=== PATIENT | male | born 1940 | race Caucasian/White ===

== ENCOUNTER 2018-11-23 10:02 | Inpatient (IN) | payer OTHER ==
[~2018-11-23] VITALS: Ht 182.9 cm; Wt 79.6 kg
--- NOTE | ~2018-11-23 | CRIT ---
[facility] [address] [place] [address] CRITICAL CARE NOTE Name: VLAD VASQUEZ Room #: 209-P [facility] IN M.R.#: [id number] Admission: 11/23/18 ������������������ Attend Phys: Kevin Fonseca Discharge: 11/24/18 ������������������ Date of : 44 Report #: [id number] THIS REPORT FOR: //name// CC: PABLO physician/PCP Kevin Fonseca DATE OF SERVICE: 11/23/2018 INDICATION FOR CONSULTATION: STEMI alert. HISTORY OF PRESENT ILLNESS: This is a very pleasant 78-year-old gentleman who has not sought medical attention majority of his life, was brought to the Emergency Room via ambulance for shortness of breath. The patient states he has been short of breath for several days, but on the day he was brought in, it became so prominent that he was unable to stay home. He states currently that he is not having any shortness of breath. He has no orthopnea or PND prior to this. He denies any palpitations, has not had any syncope or near syncope. He states he has not fallen any. No fever, chills, night sweats have been described previously. He is a former alcoholic, having stopped alcohol approximately 10 months ago. He has been having anorexia and weakness for some time and problems with his bowels intermittently. He subsequently is admitted for further assessment and evaluation. ELECTROCARDIOGRAM: Sinus tachycardia with PACs, left axis deviation with left anterior fascicular block. There is voltage criteria for LVH with repolarization abnormalities. ALLERGIES: PENICILLIN. PAST MEDICAL HISTORY: 1. Tobacco dependence. 2. Former alcohol dependence. RADIOLOGIC: Chest x-ray shows no acute processes. SOCIAL HISTORY: The patient lives alone. Quit smoking greater than one year ago, is no longer alcohol consumer. Lives at home. FAMILY HISTORY: Significant for different cancers including melanoma and leukemia. REVIEW OF SYSTEMS: Except for symptoms previously mentioned and those commensurate with comorbid state, the 10-point review of system is negative. HOME MEDICATIONS have been ifje-jjv-sacquka omeprazole and aspirin. [address] [address] CRITICAL CARE NOTE Name: VLAD VASQUEZ Room #: 209-P [facility] IN M.R.#: [id number] Admission: 11/23/18 ������������������ Attend Phys: Kevin Fonseca Discharge: 11/24/18 ������������������ Date of : 44 Report #: [id number] PHYSICAL EXAMINATION: GENERAL: Well-developed, well-nourished male, resting comfortably, in no acute distress. HEENT: Normocephalic, atraumatic. Pupils are equal, round, reactive to light and accommodation. Extraocular muscles are intact. Sclerae and conjunctivae are anicteric. NECK: JVD is normal. Carotid upstrokes are bilaterally symmetrical. No bruits are heard. No thyromegaly. No lymphadenopathy. LUNGS: Decreased tidal volume. No wheezes, rhonchi or crackles. CARDIAC: Demonstrates irregular rhythm, controlled rate. PMI is laterally displaced mildly and there is a grade 2/6 systolic murmur from the base to the apex of the axilla and in the aortic region. ABDOMEN: Palpable liver or sub-right costal margin firmness. No bruits noted. EXTREMITIES: Without cyanosis, clubbing or edema. Distal pulses are intact. DTR symmetrical. NEUROLOGIC: Cranial nerves 2-12 are grossly normal and symmetrical. PSYCHIATRIC: Alert, oriented with normal affect. SKIN: Warm and dry. LABORATORY DATA: Noted and reviewed in the chart. IMPRESSION AND PLAN: 1. Shortness of breath by history, currently fairly stable on oxygen. In view of this, would evaluate more fully pulmonary causes of this since he is a longtime smoker. 2. Sinus tachycardia secondary to above. We will evaluate and monitor closely. 3. Generalized weakness, multiple reasons for this including anorexia, etc., that is the davila thing that must be evaluated more fully to see why he is like this. 4. Abdominal pain as per primary care. ��������������������������������������������� ���������������������������������������� By: ��������������������������������������������� [id number] Jason Vivar MD /nt
[2018-11-23 10:05] VITALS: BP 151/78
[2018-11-23] MEDS ORDERED: OMEPRAZOLE10 MG PO (10:13)
[2018-11-23] MEDS ORDERED: ASPIR 8181 MG PO (10:13)
[2018-11-23 10:37] LABS: HEMATOCRIT 28.6 % (42.0-52.0); HEMOGLOBIN 9.4 gm/dL (14.0-18.0); MCH 30.3 pg (26.0-34.0); MCHC 32.9 g/dL (28.0-37.0); MCV 91.8 fL (80.0-100.0); PLATELET COUNT 243 thou/uL (150-400); RBC 3.12 mil/uL (4.50-6.00); RDW 22.5 % (10.5-14.5); WBC 9.5 thou/uL (4.0-11.0)
[2018-11-23 10:45] LABS: ANION GAP 10 mmol/L (7-16); BUN 21 mg/dL (7-18); CALCIUM 8.9 mg/dL (8.5-10.1); CHLORIDE 102 mmol/L (98-107); CO2 23 mmol/L (21-32); CREATININE 1.1 mg/dL (0.7-1.3); GLUCOSE 100 mg/dL (74-106); POTASSIUM 3.9 mmol/L (3.5-5.1); SODIUM 135 mmol/L (136-145)
[2018-11-23 10:50] LABS: APTT 38.3 Seconds (24.5-32.8); INR 1.2; PROTIME 12.3 Seconds (9.3-11.4)
[2018-11-23 10:56] LABS: ALBUMIN 1.9 g/dL (3.4-5.0); LIPASE 72 U/L (73-393); SGOT 579 U/L (15-37); SGPT 85 U/L (30-65); TOTAL BILIRUBIN 1.5 mg/dL (<0.1-1.0); TOTAL PROTEIN 5.7 g/dL (6.4-8.2); TROPONIN-I <0.06 ng/mL (<0.06)
[2018-11-23 10:59] LABS: ABSOLUTE NEUTROPHILS 7.4 thou/uL (1.4-8.2)
[2018-11-23 11:00] LABS: ANISOCYTOSIS 2+; OVALOCYTES FEW
[2018-11-23 17:57] VITALS: BP 145/64
[2018-11-23 18:29] VITALS: BP 132/69
--- NOTE | 2018-11-23 19:15 | NUR ---
ARRIVED FROM THE ED ON A HOSPTIAL BED. AAOX4 REPORTS FEELING VERY TIRED. FAMILT AT BEDSIDE. OREIENTED TO ROOM AND HOW TO USE CALL LIGHT.
[2018-11-23 19:27] VITALS: BP 145/70
--- NOTE | 2018-11-24 03:44 | NUR ---
PT ARRIVED AT SHIFT CHANGE. PT A/OX4, FATIGUED, DAUGHTERS AT BEDSIDE. VITAL SIGNS STABLE, ASSESSMENT CHARTED. DAUGHTER MENTIONED THAT PT HAS NOT EATEN OR DRANK MUCH IN ABOUT 5 DAYS. DAUGHETR ALSO MENTIONED THAT PT HAS NOT VOIDED OT HAD A BM IN 5 DAY. REFUSED BLOOD SUGAR CHECK, REFUSED BLADDER SCAN. DAUGHTER STAYED AT BEDSIDE THROUGH THE NIGHT. PT RESTED WELL THROUGH THE NIGHT. NO COMPLAINTS OF PAIN. NO COMPLAINTS OF SOB, RA MAINTAINED. NO ACUTE CHANGES THROUGH THE NIGHT. PROGRESSING SLOWLY TOWARD PLAN OF CARE. WILL CONTINUE TO MONITOR.
[2018-11-24 07:15] VITALS: BP 137/65
--- NOTE | 2018-11-24 08:03 | EKG ---
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: Cathy : [phone] Requested By: Celio Richardson Order Number: [id number] MD: Samuel Baker Measurements Intervals [place] Rate: 105 P: 40 SD: 167 QRS: -64 QRSD: 117 T: 111 QT: 366 QTc: 484 Interpretive Statements Sinus tachycardia with atrial premature complexes LAD, consider 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
--- NOTE | 2018-11-24 12:10 | NUR ---
High nutrition screening risk trigger. Pt with kidney mass and metastasis. Plan is for hospice. Will defer nutrition assessment at this time. Diet as tolerated.
--- NOTE | 2018-11-24 12:17 | NUR ---
Calorie count ordered and will start 11/24 x 2 days
--- NOTE | 2018-11-24 15:14 | NUR ---
REFERRAL FAXED TO [facility]OS[facility]ICE [facility] AND THEY CAN ACCEPT PT. FAXED DC ORDERS/SUMMARY TO FACILITY SPOKE WITH JANENE IN INTAKE AND SHE RECEIVED DC ORDERS. ARRANGED TRANSPORT VIA AMBULANCE ([facility]) FOR 1600 TODAY. FAMILY NOTIFIED AT BEDSIDE UNIT NOTIFIED AND CHART COPY PER US. RN TO CALL REPORT TO [phone].
--- NOTE | 2018-11-24 15:53 | NUR ---
Patient admits for weakness/kidney stone. Met with s/o of 15 years and 2 dtrs at bedside. They reports patient evaled for hospice by Hospice but not a candidate for house. Dtrs report need to find placement for patient, medicaid application, outside DNR form and ltc bed at nursing facility. Rec call from Hospice casemgt Cat Antonio [phone] who reports patient appropriate for [facility] for respite. Bed avail today. Rec orders and completed outside DNR on chart. [facility] for 1600. Family pleased with plan will give them time to make ltc arrangements.
--- NOTE | 2018-11-24 19:56 | NUR ---
ASSUMED CARE OF PATIENT AT 0700. ASSESSMENTS COMPLETED. PATIENT'S DAUGHTER X 2 AT THE BEDSIDE FOR ENTIRETY OF DAY. PATIENT REFUSED ALL MEDS OR MEDICAL CARE. PATIENT ASKED TO BE COMFORTABLE WITH ROOM OF TEMPERATURE UNTIL POSSIBLE TRANSFER TO HOSPICE. PATIENT DID VOID TWICE, APPROXIMATELY 200 ML EACH TIME WHICH WAS DARK [place] IN COLOR. PATIENT ATE LESS THAN HALF OF EACH MEAL AND SLEPT INTERMITTENT THROUGHOUT THE DAY. PATIENT WAS TRANSFERRED [facility]IA [facility] AT 1900 TO [facility]. PATIENT'S DAUGHTERS TOOK ALL OF HIS BELONGINGS. PATIENT WAS PLEASANT AND GRATEFUL TO ALL STAFF UPON HIS DISCHARGE.
== END 2018-11-24 19:00 | disposition hospice, inpatient (51) | DRG 686 ==
LOC: ER 10:02 → EROBS 15:12 → 2N 15:12
PROVIDERS: Emergency Medicine; ADMIT Hospitalist
DX: C64.1 Malignant neoplasm of right kidney, except renal pelvis (principal); E43 Unspecified severe protein-calorie malnutrition; J90 Pleural effusion, not elsewhere classified; K40.20 Bilateral inguinal hernia, without obstruction or gangrene, not specified as recurrent; K74.60 Unspecified cirrhosis of liver; G89.29 Other chronic pain; R10.9 Unspecified abdominal pain; Z88.0 Allergy status to penicillin; I25.10 Atherosclerotic heart disease of native coronary artery without angina pectoris; Z87.891 Personal history of nicotine dependence; Z80.6 Family history of leukemia; Z79.899 Other long term (current) drug therapy
CPT/HCPCS: 10194